=== PATIENT | male | born 1975 | race Two or more races ===

== ENCOUNTER 2018-01-26 23:58 | Emergency (ER) ==
[2018-01-27 00:12] VITALS: BP 108/73; TEMP 97; BMI 20.7
[2018-01-27] MEDS ORDERED: KEFLEX PO STA (00:14)
[2018-01-27] MEDS ORDERED: ROBITUSSIN AC SYRUP PO STA (00:14)
[2018-01-27] MEDS ORDERED: DECADRON 4 MG/ML SDV IM STA (00:14)
--- NOTE | 2018-01-27 00:17 | ED.PDOC ---
General ED Provider: Dr. MENDEL MARTINES Chief Complaint: Cough Stated Complaint: coughing, congestion, head cold. no fever or chills Time Seen by Physician: 00:15 Mode of Arrival: Walk-In Information Source: Patient Primary Care Provider: SHENA COLLINS Nursing and Triage Documentation Reviewed and Agree: Yes Reviewed sepsis parameters & appropriate labs ordered?: No System Inflammatory Response Syndrome: Not Applicable Sepsis Protocol: For patient's 13 years and over: Temp is 96.8 and below OR 101 and greater Pulse >90 BPM Resp >20/minute Acutely Altered Mental Status Are patient's symptoms suggestive of a new infection, such as: -Pneumonia -Skin, Soft Tissue -Endocarditis -UTI -Bone, Joint Infection -Implantable Device -Acute Abdominal Infection -Wound Infection -Meningitis -Blood Stream Catheter Infection -Unknown Respiratory Complaint Exam - Respiratory Complaint/Exam Symptoms Are: Still present Timing: Constant Initial Severity: Mild Current Severity: Mild Location: Unknown Character: Reports: Productive cough Aggravating: Reports: Allergens, URI Alleviating: Reports: None Associated Signs and Symptoms: Reports: URI, Nasal congestion, Hoarseness. Denies: Rapid breathing, Dyspnea, Fever, Chills, Chest pain, Pleuritic chest pain, Wheezing, Hemoptysis, Dizziness, Calf pain, Calf swelling, Edema, Sinus discomfort, Vomiting, Sore throat, Weight loss, Decreased oral intake, Increased thirst, Increased appetite, Increased urination Related History: Reports: Similar episode History of Healthcare-Acquired Pneumonia: No Related Surgical History: Reports: None Pulmonary Embolism Risk Factors: None Cardiac Risk Factors: Reports: None Pseudomonas Risk Factors: Reports: None Tuberculosis Risk Factors: Reports: None Status Asthmaticus Risk Factors: Reports: None Home Oxygen Use: No Recent Stress Test: No Recent Echo/LV Function: No Current Antibiotic Use: No Current Asthma Medication Use: No Respiratory Distress: None Inadequate Respiratory Effort: No Stridor Present: No JVD Present: No Accessory Muscle Use: No Retractions: Not Present Diminished Breath Sounds: No Differential Diagnoses: Bronchitis Review of Systems - Review Of Systems Constitutional: Reports: No symptoms Eyes: Reports: No symptoms Ears, Nose, Mouth, Throat: Reports: Nose discharge Respiratory: Reports: Cough Cardiac: Reports: No symptoms GI: Reports: No symptoms : Reports: No symptoms Musculoskeletal: Reports: No symptoms Skin: Reports: No symptoms Neurological: Reports: No symptoms Endocrine: Reports: No symptoms Hematologic/Lymphatic: Reports: No symptoms All Other Systems: Reviewed and Negative Past Medical History - Past Medical History Previously Healthy: Yes Endocrine: Reports: None Cardiovascular: Reports: None Respiratory: Reports: None Hematological: Reports: None Gastrointestinal: Reports: None Genitourinary: Reports: None Neuro/Psych: Reports: None Musculoskeletal: Reports: None Cancer: Reports: None - Surgical History General Surgical History: Reports: None - Family History Family History: Reports: None - Social History Smoking Status: Current every day smoker, Heavy tobacco smoker Smoking Cessation Counseling Time: > 10 min Hx Substance Use: No Alcohol Screening: None - Immunizations Tetanus Shot up to Date: No (unknown) Physical Exam - Physical Exam Appearance: Well-appearing, No pain distress, Well-nourished Eyes: PEREZ, EOMI, Conjunctiva clear ENT: Ears normal, Nose normal, Oropharynx normal Respiratory: Airway patent, Breath sounds clear, Breath sounds equal, Respirations nonlabored Cardiovascular: RRR, Pulses normal, No rub, No murmur GI/: Soft, Nontender, No masses, Bowel sounds normal, No Organomegaly Musculoskeletal: Normal strength, ROM intact, No edema, No calf tenderness Skin: Warm, Dry, Normal color Neurological: Sensation intact, Motor intact, Reflexes intact, Cranial nerves intact, Alert, Oriented Psychiatric: Affect appropriate, Mood appropriate Critical Care Note - Critical Care Note Total Time (mins): 30 Course - Course Orders, Labs, Meds: Orders Category Date Time Status Cephalexin [Keflex] MEDS 01/27/18 00:14 Stat 500 mg PO ONCE STA Dexamethasone 4 mg/ml Inj [Decadron 4 mg/ml Sdv] MEDS 01/27/18 00:14 Stat 4 mg IM ONCE STA Guaifenesin/Codeine Phosphate [Robitussin AC Syrup] MEDS 01/27/18 00:14 Stat 10 ml PO ONCE STA Vital Signs: Temp Pulse Resp BP Pulse Ox 01/27/18 00:01 97 F L 70 20 108/73 98 Departure - Departure Time of Disposition: 00:18 Disposition: HOME SELF-CARE Discharge Problem: URTI (acute upper respiratory infection) Instructions: Upper Respiratory Infection (ED) Condition: Stable Pt referred to PMD for follow-up: Yes IPMP verified?: No Additional Instructions: Tylenol prn Increase Hydration if not better needs f/u with PMD Prescriptions: Cephalexin [Keflex] 500 mg PO Q12HR #14 capsule Guaifenesin/Dextromethorphan [Robitussin Cough-Chest Dm Liq] 10 ml PO TID #1 bottle Prednisone 10 mg PO BIDWM #14 tablet Allergies/Adverse Reactions: Allergies No Known Allergies Allergy (Unverified 01/27/18 00:08) Home Medications: Ambulatory Orders Cephalexin [Keflex] 500 mg PO Q12HR #14 capsule 01/27/18 Duloxetine HCl [Cymbalta] 60 mg PO DAILY 01/27/18 Guaifenesin/Dextromethorphan [Robitussin Cough-Chest Dm Liq] 10 ml PO TID #1 bottle 01/27/18 Prednisone 10 mg PO BIDWM #14 tablet 01/27/18 Disposition Discussed With: Patient
== END 2018-01-27 00:45 | disposition home or self-care (01) ==
LOC: ED 23:58
DX: J06.9 Acute upper respiratory infection, unspecified (principal); F17.210 Nicotine dependence, cigarettes, uncomplicated
CPT/HCPCS: 96372; 99282

== ENCOUNTER 2018-04-06 21:15 | Emergency (ER) ==
[2018-04-06 21:20] VITALS: BMI 20.3
[2018-04-06] MEDS ORDERED: SODIUM CHLORIDE 1,000 ML IV STA ×2 (21:22)
[2018-04-06] MEDS ORDERED: DILAUDID 0.5 MG/0.5 ML SYRINGE IVP STA ×2 (21:22→21:50)
[2018-04-06] MEDS ORDERED: ZOFRAN 4 MG/2 ML IVP STA (21:23)
[2018-04-06] MEDS ORDERED: TORADOL IVP STA (21:23)
--- NOTE | 2018-04-06 22:20 | CT ---
Exam: CT of the abdomen and pelvis without contrast History: Flank pain Technique: [address] of the abdomen and pelvis without intravascular contrast FINDINGS: The lung bases are clear. No significant liver abnormality. The adrenals, pancreas and spl een are unremarkable. The stomach and hiatus are unremarkable.The gallbladder appears normal. Kidneys and proximal collecting system are unremarkable. The appendix is normal. Bowel loops demonstrate nor mal caliber. No inflamatory change seen in the mesentery or retroperitoneum. Vascular structures appe ar normal by noncontrast CT. Pelvic genitourinary structures appear normal. Pelvic bowel loops are unremarkable. No inflammatory c hange in the pelvic fat. No acute abnormality of the abdominal or pelvic skeleton. Impression: 1. No inflammatory process, bowel or urinary obstruction is seen. No acute findings of the abdomen or pelvis.
[2018-04-06 23:17] VITALS: BP 132/76; TEMP 98.2
--- NOTE | 2018-04-07 00:12 | ED.PDOC ---
General ED Provider: Dr. GAGE DAMON-ER Chief Complaint: Abdominal Pain Stated Complaint: brando got a kidney stone--was seen two weeks ago at [facility] Time Seen by Physician: 21:20 Mode of Arrival: Walk-In Information Source: Patient, Family Exam Limitations: No limitations Nursing and Triage Documentation Reviewed and Agree: Yes Does patient meet sepsis criteria?: No System Inflammatory Response Syndrome: Not Applicable Sepsis Protocol: For patient's 13 years and over: Temp is 96.8 and below OR 101 and greater Pulse >90 BPM Resp >20/minute Acutely Altered Mental Status Are patient's symptoms suggestive of a new infection, such as: -Pneumonia -Skin, Soft Tissue -Endocarditis -UTI -Bone, Joint Infection -Implantable Device -Acute Abdominal Infection -Wound Infection -Meningitis -Blood Stream Catheter Infection -Unknown GI Complaint Exam - Abdominal Pain Complaint/Exam Onset: Gradual Duration: several hours Symptoms Are: Still present Timing: Constant Initial Severity: Mild Current Severity: Moderate Location of Pain: Discrete Radiates To: Reports: Flank, LLQ Character: Reports: Dull, Aching Aggravating: Reports: None Alleviating: Reports: Spontaneous resolution Associated Signs and Symptoms: Reports: Back pain Related History: Reports: Similar episode Differential Diagnoses: Ureteral Stone, UTI Review of Systems - Review Of Systems Constitutional: Reports: No symptoms Eyes: Reports: No symptoms Ears, Nose, Mouth, Throat: Reports: No symptoms Respiratory: Reports: No symptoms Cardiac: Reports: No symptoms GI: Reports: Abdominal pain : Reports: Flank pain, Hematuria Musculoskeletal: Reports: No symptoms Skin: Reports: No symptoms Neurological: Reports: No symptoms Endocrine: Reports: No symptoms Hematologic/Lymphatic: Reports: No symptoms All Other Systems: Reviewed and Negative Past Medical History - Past Medical History Previously Healthy: Yes Endocrine: Reports: None Cardiovascular: Reports: None Respiratory: Reports: None Hematological: Reports: None Gastrointestinal: Reports: None Genitourinary: Reports: None Neuro/Psych: Reports: None Musculoskeletal: Reports: None Cancer: Reports: None - Surgical History General Surgical History: Reports: None - Family History Family History: Reports: None - Social History Smoking Status: Current every day smoker, Heavy tobacco smoker Hx Substance Use: Yes (MARIJUANA) Alcohol Screening: None - Immunizations Tetanus Shot up to Date: No Physical Exam - Physical Exam Appearance: Well-appearing Pain Distress: Moderate Eyes: PEREZ, EOMI, Conjunctiva clear ENT: Ears normal, Nose normal, Oropharynx normal Respiratory: Airway patent, Breath sounds clear, Breath sounds equal, Respirations nonlabored Cardiovascular: RRR, Pulses normal, No rub, No murmur GI/: Soft, Nontender, No masses, Bowel sounds normal, No Organomegaly Musculoskeletal: Normal strength, ROM intact, No edema, No calf tenderness Skin: Warm, Dry, Normal color Neurological: Sensation intact, Motor intact, Reflexes intact, Cranial nerves intact, Alert, Oriented Psychiatric: Affect appropriate, Mood appropriate Interpretation - Radiology Interpretation Radiology Interpretation By: Radiologist Radiology Results: Negative Exam Interpreted: CT Scan Re-Evaluation - Re-Evaluation Time of Re-Evaluation: 00:12 Status: Improved Vital Signs Stable: Yes Pain Level: 0 Appearance: NAD Lungs: Clear Skin: Warm and Dry Neuro: Alert and Oriented X3 CV: RRR Critical Care Note - Critical Care Note Total Time (mins): 0 Course - Course Hematology/Chemistry: 04/06/18 21:31 04/06/18 21:31 Orders, Labs, Meds: Lab Review 04/06/18 04/06/18 04/06/18 21:31 21:31 23:42 WBC 7.93 RBC 4.70 Hgb 15.1 Hct 42.9 MCV 91.3 MCH 32.1 H MCHC 35.2 RDW Coeff of Mike 12.4 Plt Count 266 Immature Gran % (Auto) 0.3 Neut % (Auto) 59.8 Lymph % (Auto) 31.9 [place] % (Auto) 6.2 Eos % (Auto) 1.5 Baso % (Auto) 0.3 Immature Gran # (Auto) 0.0 Neut # (Auto) 4.8 Lymph # (Auto) 2.5 [place] # (Auto) 0.5 Eos # (Auto) 0.1 Baso # (Auto) 0.0 Sodium 137 Potassium 4.4 Chloride 103 Carbon Dioxide 25 Anion Gap 13.4 BUN 10 Creatinine 1.00 Estimated GFR (MDRD) 82.00 BUN/Creatinine Ratio 10.00 Glucose 108 H Calcium 9.8 Total Bilirubin 0.7 AST 21 ALT 17 Alkaline Phosphatase 81 Total Protein 6.9 Albumin 3.7 Globulin 3.2 Albumin/Globulin Ratio 1.16 Amylase 68 Lipase 49 Urine Color Dark Urine Clarity Cloudy Urine pH 7.5 Ur Specific [place] 1.020 Urine Protein Negative Urine Glucose (UA) Negative Urine Ketones Negative Urine Blood 2+ Urine Nitrite Negative Urine Bilirubin Negative Urine Urobilinogen 0.2 Ur Leukocyte Esterase Negative Urine Microscopic RBC Tntc Urine Microscopic WBC 2-5 Ur Squamous Epith Cells 2-5 Amorphous Sediment 1+ Urine Bacteria Trace Urine Sperm 1+ Orders Category Date Time Status ED IV/MEDIPORT/POWERPORT .ONCE EMERGENCY 04/06/18 21:22 Active AMYLASE Stat LAB 04/06/18 21:31 Completed CBC W/ AUTO DIFF Stat LAB 04/06/18 21:31 Completed COMPREHENSIVE METABOLIC PANEL Stat LAB 04/06/18 21:31 Completed LIPASE Stat LAB 04/06/18 21:31 Completed UA [URINALYSIS C & S IF INDICATED] Stat LAB 04/06/18 23:42 Completed 0.9 % Sodium Chloride [Saline Flush] MEDS 04/06/18 21:22 Ordered 1 syr IVF PRN PRN Hydromorphone HCl [Dilaudid] MEDS 04/06/18 21:22 Discontinued 1 mg IVP ONCE STA Hydromorphone HCl [Dilaudid] MEDS 04/06/18 21:50 Discontinued 1 mg IVP ONCE STA Ketorolac Tromethamine [Toradol] MEDS 04/06/18 21:23 Discontinued 30 mg IVP ONCE STA Ondansetron HCl/Pf [Zofran 4 mg/2 ml] MEDS 04/06/18 21:23 Discontinued 4 mg IVP ONCE STA Sodium Chloride 0.9% [Sodium Chloride] 1,000 ml MEDS 04/06/18 21:22 Discontinued IV 1,000 mls/hr Sodium Chloride 0.9% [Sodium Chloride] 1,000 ml MEDS 04/06/18 21:22 Discontinued IV 100 mls/hr CT ABD/PEL WO RENAL STONE PROT Stat RADS 04/06/18 21:24 Completed Medications Generic Name Dose Route Start Last Admin Trade Name Freq PRN Reason Stop Dose Admin Sodium Chloride 1 syr 04/06/18 21:22 Saline Flush IVF PRN PRN To flush IV Discontinued Medications Generic Name Dose Route Start Last Admin Trade Name Freq PRN Reason Stop Dose Admin Hydromorphone HCl 1 mg 04/06/18 21:22 04/06/18 21:34 Dilaudid IVP 04/06/18 21:23 1 mg ONCE STA Administration Hydromorphone HCl 1 mg 04/06/18 21:50 04/06/18 21:51 Dilaudid IVP 04/06/18 21:51 1 mg ONCE STA Administration Sodium Chloride 1,000 mls @ 100 mls/hr 04/06/18 21:22 04/06/18 21:34 Sodium Chloride IV 04/07/18 07:21 100 mls/hr .Q10H STA Administration Sodium Chloride 1,000 mls @ 1,000 mls/hr 04/06/18 21:22 04/06/18 22:52 Sodium Chloride IV 04/06/18 22:21 1,000 mls/hr .Q1H STA Administration Ketorolac Tromethamine 30 mg 04/06/18 21:23 04/06/18 21:34 Toradol IVP 04/06/18 21:24 30 mg ONCE STA Administration Ondansetron HCl 4 mg 04/06/18 21:23 04/06/18 21:34 Zofran 4 Mg/2 Ml IVP 04/06/18 21:24 4 mg ONCE STA Administration Vital Signs: Temp Pulse Resp BP Pulse Ox 04/06/18 23:15 98.2 F 78 16 132/76 97 04/06/18 21:15 97.2 F L 88 24 146/53 H 98 Departure - Departure Time of Disposition: 00:12 Disposition: HOME SELF-CARE Discharge Problem: Flank pain Hematuria Qualifiers: Hematuria type: unspecified type Qualified Code(s): R31.9 - Hematuria, unspecified Instructions: Hematuria (ED) Condition: Good Pt referred to PMD for follow-up: Yes IPMP verified?: No Additional Instructions: f/u with urology/pcp about blood in the urine Allergies/Adverse Reactions: Allergies No Known Allergies Allergy (Unverified 01/27/18 00:08) Home Medications: Ambulatory Orders Duloxetine HCl [Cymbalta] 60 mg PO DAILY 01/27/18 Multivitamin [Multiple Vitamins] 1 each PO DAILY 04/06/18 Disposition Discussed With: Patient, Family
== END 2018-04-07 00:15 | disposition home or self-care (01) ==
LOC: ED 21:15
DX: R10.9 Unspecified abdominal pain (principal); R31.9 Hematuria, unspecified; F17.210 Nicotine dependence, cigarettes, uncomplicated
CPT/HCPCS: 36415; 74176; 80053; 81001; 82150; 83690; 85025; 96361; 96374; 96375; 99284